=== PATIENT | female | born 1975 | race Caucasian/White ===

== ENCOUNTER 2024-05-27 08:25 | Outpatient (CLI) | payer OTHER ==
[2024-05-27 09:26] LABS: HEMATOCRIT 39.7 % (36.0-45.00); HEMOGLOBIN 13.6 g/dL (12.0-15.00); MEAN CELL VOLUME 87.2 fL (80.00-100.00); MEAN CORPUSCULAR HEMOGLOBIN 29.8 pg (27.00-32.0); MEAN CORPUSCULAR HGB CONC 34.2 g/dl (32.0-36.0); PLATELET COUNT 336 K/uL (150-450); RED BLOOD COUNT 4.55 M/uL (4.00-6.00); RED CELL DISTRIBUTION WIDTH 13.1 % (11.5-14.5)
[2024-05-27 09:30] LABS: URINE APPEARANCE Clear; URINE BILIRRUBIN Negative (NEGATIVE); URINE BLOOD Small; URINE COLOR Yellow; URINE GLUCOSE Negative (NEGATIVE); URINE KETONE Negative (NEGATIVE); URINE LEUKOCYTE Small; URINE NITRATE Negative; URINE PROTEIN Negative (NEGATIVE); URINE UROBILINOGEN 0.2 E.U./dl
[2024-05-27 09:35] LABS: URINE EPITHELIAL CELLS 65.3 uL (0.0-38.8); URINE RBC 24.2 uL (0.0-20.8); URINE WBC 25.1 uL (0.0-23.2)
[2024-05-27 09:52] LABS: URINE CAST 0.15 uL (0.0-1.40)
[2024-05-27 10:35] LABS: ALBUMIN 3.9 gm/dL (3.4-5.0); BILIRUBIN TOTAL 1.49 mg/dL (0.3-1.2); CALCIUM 9.1 mg/dL (8.5-10.1); CHOL HDL RATIO 2.2 (0-5.0); CREATININE SERUM 0.7 mg/dL (0.55-1.02); GFR 88.57; POTASSIUM 4.14 mEq/L (3.5-5.1); T4 FREE 0.9 NG/ML (0.76-1.46); TOTAL PROTEIN 6.9 gm/dL (6.4-8.2); TSH 3.08 uIU/mL (0.358-3.74)
== END 2024-05-27 08:30 | disposition home or self-care (01) ==
LOC: LAB 08:25
DX: N18.1 Chronic kidney disease, stage 1 (principal); E78.01 Familial hypercholesterolemia; E11.9 Type 2 diabetes mellitus without complications; D64.9 Anemia, unspecified; N39.0 Urinary tract infection, site not specified; I10 Essential (primary) hypertension; E03.8 Other specified hypothyroidism

== ENCOUNTER 2024-06-06 07:52 | Outpatient (CLI) | payer OTHER | END 2024-06-06 07:58 | disposition home or self-care (01) | LOC: MAMO-SONO 07:52 | PROVIDERS: ATTEND Obstetrics & Gynecology Gynecology | DX: N60.11 Diffuse cystic mastopathy of right breast (principal); N60.12 Diffuse cystic mastopathy of left breast; Z12.31 Encounter for screening mammogram for malignant neoplasm of breast ==

== ENCOUNTER 2024-07-07 16:17 | Emergency (ER) | payer OTHER ==
[~2024-07-07] VITALS: Ht 165.1 cm; Wt 61.2 kg
[2024-07-07 16:44] VITALS: BP 107/64; O2SAT 100
[2024-07-07] MEDS ORDERED: KETOROLAC TROMETHAMINE 60 MG VIAL IM ONE (18:00)
[2024-07-07] MEDS ORDERED: ACETAMINOPHEN 500 MG GEL..CAP PO ONE (18:00)
[2024-07-07] MEDS ORDERED: GUAIFENESIN/DEXTROMETHORPHAN 10ML BLIST.PACK PO ONE (18:00)
[2024-07-07 20:20] LABS: HEMATOCRIT 39.7 % (36.0-45.00); HEMOGLOBIN 13.3 g/dL (12.0-15.00); MEAN CELL VOLUME 90.3 fL (80.00-100.00); MEAN CORPUSCULAR HEMOGLOBIN 30.2 pg (27.00-32.0); MEAN CORPUSCULAR HGB CONC 33.4 g/dl (32.0-36.0); PLATELET COUNT 404 K/uL (150-450); RED CELL DISTRIBUTION WIDTH 13.9 % (11.5-14.5)
[2024-07-07] MEDS ORDERED: QC TUSSIN DM 2237 ML PO (21:36)
[2024-07-07] MEDS ORDERED: ZITHROMAX500 MG PO (21:42)
== END 2024-07-07 21:50 | disposition home or self-care (01) ==
LOC: ER 16:19
PROVIDERS: General Practice
DX: M94.0 Chondrocostal junction syndrome [Tietze] (principal); J00 Acute nasopharyngitis [common cold]; Z88.1 Allergy status to other antibiotic agents; Z91.018 Allergy to other foods

== ENCOUNTER → 2025-04-08 07:22 | Outpatient (CLI) | payer OTHER ==
[~2025-04-08 07:22] MED LIST: QC TUSSIN DM 2237 ML PO; ZITHROMAX500 MG PO
[2025-04-08 08:57] LABS: BASO % 1.0 % (0.1-1.2); EOS # 0.10 (0.04-0.54); EOS % 1.9 % (0.7-7.0); LYMPH # 1.90 (1.18-3.74); LYMPH % 36.3 % (19.3-53.1); MEAN PLATELET VOLUME 11.30 fl (9.4-12.4); MONO # 0.49 (0.24-0.82); MONO % 9.4 % (4.7-12.5); NEUT # 2.69 (1.56-6.13); NEUT % 51.4 % (34.0-71.1); RED CELL DISTRIBUTION WIDTH 12.5 % (11.6-14.4)
[2025-04-08 09:48] LABS: ALT/SGPT 16.0 U/L (12-78); AST/SGOT 12.0 U/L (15-37); BILIRUBIN TOTAL 0.63 mg/dL (0.3-1.2); BUN CREA RATIO 17.0 (7.0-25.0); CHOL HDL RATIO 2.8 (0-5.0); CREATININE SERUM 0.75 mg/dL (0.55-1.02); FREE TRIODOTIRONINE 2.83 pg/ml (2.18-3.98); GFR 81.47; GLOBULINA 3.0 G/DL (2.4-3.5); GLUCOSE FASTING 85.0 mg/dL (65-100); HDL 77.0 mg/dl (40-60); LDL 128.0 mg/dl (0-130); OSMOLALITY SERUM 282.0 MOSM/KG (275-295); T4 FREE 0.79 NG/ML (0.76-1.46); T4 TOTAL 6.26 UG/DL (4.8-13.9); VLDL 10.0 (0-39)
[2025-04-08 10:08] LABS: TSH 10.9 uIU/mL (0.358-3.74)
[2025-04-10 10:34] LABS: VITAMIN D3 25 HYDROXY 24.39 ng/ml (30-120)
[2025-04-11 09:11] LABS: ANTI THYROID PEROXIDASE 297.0 IU/mL (0-34); ESTRADIOL SERUM 11.4 pg/mL (.)
== END | disposition home or self-care (01) ==
LOC: LAB 07:22
DX: E55.9 Vitamin D deficiency, unspecified (principal); R76.0 Raised antibody titer; R68.89 Other general symptoms and signs; R79.89 Other specified abnormal findings of blood chemistry; E07.89 Other specified disorders of thyroid; E06.4 Drug-induced thyroiditis; D51.9 Vitamin B12 deficiency anemia, unspecified; Z83.438 Family history of other disorder of lipoprotein metabolism and other lipidemia

== ENCOUNTER 2025-06-07 08:33 | Outpatient (CLI) | payer OTHER | END 2025-06-07 08:36 | disposition home or self-care (01) | LOC: MAMO-SONO 08:33 | PROVIDERS: ATTEND Obstetrics & Gynecology Gynecology | DX: E03.8 Other specified hypothyroidism (principal); N60.11 Diffuse cystic mastopathy of right breast; N60.12 Diffuse cystic mastopathy of left breast; Z12.31 Encounter for screening mammogram for malignant neoplasm of breast ==

== ENCOUNTER 2025-06-12 06:47 | Outpatient (CLI) | payer OTHER | END 2025-06-12 06:59 | disposition home or self-care (01) | LOC: LAB 06:47 | PROVIDERS: ATTEND Obstetrics & Gynecology Gynecology | DX: E06.3 Autoimmune thyroiditis (principal) ==

== ENCOUNTER 2025-07-03 09:09 | Outpatient (CLI) | payer OTHER | END 2025-07-03 09:11 | disposition home or self-care (01) | LOC: SONOGRAMA 09:09 | PROVIDERS: ATTEND Pathology Anatomic Pathology & Clinical Pathology | DX: D34 Benign neoplasm of thyroid gland (principal); E06.3 Autoimmune thyroiditis; E07.89 Other specified disorders of thyroid; E04.2 Nontoxic multinodular goiter ==